=== PATIENT | male | born 1970 | race Caucasian/White ===

== ENCOUNTER → 2023-10-18 07:12 | Outpatient (REF) | payer BC, SELFPAY ==
[2023-10-18 08:05] LABS: % Basophils 0.7 % (0-2); % Eosinophils 3.5 % (0-6); % Immature Granulocytes 0.2 % (0-0.5); % Lymphocytes 42.6 % (20.5-51.1); % Monocytes 8.7 % (1.7-9.3); % Neutrophils 44.3 % (42.2-75.2); Absolute Eosinophils 0.2 10^3/uL (0-0.7); Absolute Lymphocytes 1.8 10^3/uL (1.2-3.4); Absolute Monocytes 0.4 10^3/uL (0.1-0.6); Absolute Neutrophils 1.9 10^3/uL (1.4-6.5); Hematocrit 39.8 % (39.0-52.0); Hemoglobin 14.2 g/dL (13.0-18.0); Mean Corp Hgb Conc. 35.7 g/dL (33.0-37.0); Mean Corpuscular Hgb 32.7 pg (27.0-31.0); Mean Corpuscular Volume 91.7 fL (80.0-94.0); Nucleated Red Blood Cells % 0 % (-); Platelet Count 210 10^3/uL (130-400); Red Blood Cell Count 4.34 10^6/uL (4.70-6.10); Red Cell Dist. Width 11.1 % (11.5-14.5); White Blood Cell Count 4.2 10^3/uL (4.8-10.8)
[2023-10-18 08:31] LABS: ALT (SGPT) 16 U/L (0-50); AST (SGOT) 24 U/L (17-59); Albumin 4.1 g/dl (3.5-5.0); Alkaline Phosphatase 68 U/L (38-126); Blood Urea Nitrogen 20 mg/dl (9-20); Calcium 8.9 mg/dl (8.4-10.2); Carbon Dioxide 30 mmol/L (22-30); Chloride 106 mmol/L (98-107); Glucose 97 mg/dl (70-99); HDL Cholesterol 50 mg/dl; LDL Cholesterol, Calculated 72 mg/dl; Potassium 4.5 mmol/L (3.5-5.1); Sodium 140 mmol/L (135-145); Total Bilirubin 0.7 mg/dl (0.2-1.3); Total Cholesterol 128 mg/dl (50-199); Total Protein 6.4 g/dl (6.3-8.2); Triglyceride 32 mg/dl (10-149); Very Low Density Lipoprotein 6 mg/dl (0-30); eGFR > 60.00
[2023-10-18 08:57] LABS: TSH Reflex To Free T4 2.63 uIU/ml (0.47-4.68)
== END ==
LOC: REG 07:12
PROVIDERS: ATTENDING PHYSICIAN Registered Nurse
DX: Z13.220 Encounter for screening for lipoid disorders (principal)
CPT/HCPCS: 36415; 80053; 80061; 84443; 85025

== ENCOUNTER → 2023-11-23 09:09 | Outpatient (REF) | payer BC, SELFPAY ==
[2023-11-23 10:51] LABS: PSA, Total - Screen 0.54 ng/ml (0.0-4.0)
== END ==
LOC: RAD 09:09
PROVIDERS: ATTENDING PHYSICIAN Registered Nurse
DX: Z00.00 Encounter for general adult medical examination without abnormal findings (principal); Z80.42 Family history of malignant neoplasm of prostate
CPT/HCPCS: 36415; G0103

== ENCOUNTER → 2024-01-03 09:41 | Outpatient (REF) | payer BC, SELFPAY | LOC: RCS 09:41 | PROVIDERS: ATTENDING PHYSICIAN Internal Medicine Cardiovascular Disease; FAMILY PHYSICIAN Registered Nurse | DX: R07.89 Other chest pain (principal); Z82.49 Family history of ischemic heart disease and other diseases of the circulatory system; M25.551 Pain in right hip; M25.552 Pain in left hip | CPT/HCPCS: 93017; 73522 ==

== ENCOUNTER → 2024-01-10 11:15 | Outpatient (REF) | payer BC, SELFPAY | LOC: RCS 11:15 | PROVIDERS: ATTENDING PHYSICIAN Internal Medicine Cardiovascular Disease; FAMILY PHYSICIAN Registered Nurse | DX: R07.89 Other chest pain (principal) | CPT/HCPCS: 93306 ==

== ENCOUNTER → 2024-01-16 08:57 | Outpatient (REF) | payer BC, SELFPAY | LOC: RCS 08:57 | PROVIDERS: ATTENDING PHYSICIAN Internal Medicine Cardiovascular Disease; FAMILY PHYSICIAN Registered Nurse | DX: R94.39 Abnormal result of other cardiovascular function study (principal); Z82.49 Family history of ischemic heart disease and other diseases of the circulatory system; R07.89 Other chest pain | CPT/HCPCS: 93017; 93350 ==

== ENCOUNTER → 2024-04-10 09:11 | Outpatient (REF) | payer BC, SELFPAY | LOC: RAD 09:11 | PROVIDERS: ATTENDING PHYSICIAN Family Medicine | DX: M25.551 Pain in right hip (principal); M25.561 Pain in right knee | CPT/HCPCS: 72110; 73502; 73564 ==